=== PATIENT | female | born 1995 | race Caucasian/White ===

== ENCOUNTER 2018-01-03 06:53 | Emergency (ER) | payer MEDICAID, SELFPAY ==
[2018-01-03 06:54] VITALS: BP 136/64; PULSE 109; RESP 28; TEMP 37.4; O2SAT 95; BMI 31.9
--- NOTE | 2018-01-03 07:04 | CT_ITS ---
STUDY: CT ABDOMEN AND PELVIS WITH CONTRAST REASON FOR EXAM: Female, 22 years old. Right lower quadrant and right flank pain. RADIATION DOSAGE (If Supplied By Facility): CTDIvol = ( 15.12 ) mGy, DLP = ( 690.76 ) mGycm TECHNIQUE: Transaxial images were obtained from the dome of the diaphragm to the symphysis pubis with oral contrast. 100 ml of Isovue 300 contrast was administered. Sagittal and coronal images were reconstructed. Individualized dose optimization techniques were used for this CT. COMPARISON: None. FINDINGS: The visualized lung bases are unremarkable. The visualized portions of the heart are within normal limits. Normal liver. Normal gallbladder and extrahepatic biliary system. Normal spleen. Normal pancreas. Normal bilateral adrenal glands. Normal right kidney. Normal left kidney. Normal visualized stomach. Normal small intestine. Moderate amount of fecal material is seen in the colon. The appendix is visualized and appears normal. Normal abdominal aorta. Normal inferior vena cava. Normal retroperitoneum. Normal urinary bladder. There is a 2.9 cm x 2.2 cm cyst in the right ovary. There is a 2.3 cm x 1.6 cm cyst in the left ovary. Normal abdominal wall. Normal osseous structures. CT/Abdomen/Pelvis WITH Contrast IMPRESSION: Small bilateral ovarian cysts. Electronically Signed: Franky Michele MD at 9:28 EDT Tel [phone], Service support ,
--- NOTE | 2018-01-03 07:07 | ED.DCSUM_ITS ---
- ER Visit Summary Date of Service: 01/03/18 Chief Complaint: Abdominal pain History of Present Illness: The patient is a [address] Corona. She reports that she has lower abdominal pain that began yesterday and is gradually gotten worse. Is a sharp, aching pain that is 10 out of 10 severity. Is worsened by movement and relieved by nothing. She denies any associated nausea , vomiting, or diarrhea. Her last bowel movement was today. She has had no melena or hematochezia. She does complain of frequency, but no dysuria. She is on her menstrual period now. No vaginal discharge. Physical Examination: Vitals: Stable. Afebrile. General: Well-nourished and well-developed. Head: Normocephalic atraumatic. Neck: Supple, no lymphadenopathy. No JVD. Nontender. Cardiovascular: Regular rate and rhythm. No murmurs. Respiratory: No respiratory distress. Clear to auscultation bilaterally. Abdominal: Soft, mild diffuse there is palpation over her lower abdomen that is worst in the right lower quadrant where the tenderness is moderate in severity, nondistended, normal bowel sounds. No guarding, rebound, or peritoneal signs. Back: Nontender. Extremities: Nontender, no edema. Skin: Normal color, no rash. Neurologic: Alert and oriented ?3. Cranial nerves II through XII are intact. Normal strength and sensation. Psych: Normal affect. Test Results: CBC is remarkable for white count of 12.0 with 85 segmented neutrophils and 12 lymphocytes. H&H of 11.8 and 35.6. Chem-7 is more for chloride 108. UA shows 1025 white blood cells, 10-25 red blood cells, and 5-10 epithelial cells. There is 1+ bacteria. test is negative. CT abdomen pelvis with p.o. and IV contrast shows normal appendix. She does have a 2.9 x 2.2 cm right ovarian cyst and a 2.3 x 1.6 cm left ovarian cyst. Emergency Department Course and Treatment: Patient had an IV placed. She was treated with morphine and Zofran IV. She is resting comfortably. Treatment Plan: Patient will be discharged with naproxen, 12 Percocet, and Zofran. Instructed follow-up Dr. Corona in 1-2 days if not improving. Return to the emergency department for any worsening symptoms. Disposition: To home in improved and stable condition. Impression: 1. Abdominal pain, acute. 2. Bilateral ovarian cysts. This note was generated with [employer] dictation software. It may contain incorrect words, spelling, and punctuation that were not noted in review of the chart prior to signing ED Disposition - Plan for ED Patient: Chief Complaint: Other, Pain/Inj Instructions: ED Abdominal Pain Unkn Cause Prescriptions: Oxycodone HCl/Acetaminophen [Percocet 5/325] 1 tablet PO Q6H PRN PRN 3 Days #12 tablet PRN Reason: Pain Ondansetron [Zofran Odt] 4 mg PO Q8H PRN PRN #10 tablet PRN Reason: Nausea Naproxen [Naprosyn] 500 mg PO BID PRN #20 tablet Referrals: Franck Corona MD [Primary Care Provider] - 1-2 Days if not improving
[2018-01-03] MEDS: Ondansetron 4 MG/2 ML Vial IV (07:12)
[2018-01-03] MEDS: 0.9% Normal Saline 1,000 ML 1000 ML IV (07:12)
[2018-01-03] MEDS: Morphine 4 MG/ML Syringe IV ×2 (07:12→08:42)
[2018-01-03 07:22] LABS: Absolute Lymphocyte Count 1.38 X10^3/ul (0.83-4.51); Absolute Neutrophil Count 10.2 X10^3/uL (2.0-7.7); Basophil# 0.01 X10^3/uL; Basophil% 0.1 % (0-1); Eosinophil# 0.02 X10^3/uL; Eosinophils% 0.2 % (0-5); Hematocrit 35.6 % (37-47); Hemoglobin 11.8 g/dl (12.0-15.0); Lymphocyte # 1.38 X10^3/ul (4.0); Lymphocyte % 11.5 % (19-41); Mean Corp Hgb Conc 33.1 g/gl (32-36); Mean Corpuscular Hgb 32.8 pg (27.0-32.0); Mean Corpuscular Volume 98.9 fL (81-99); Mean Platelet Vol. 10.9 fl (6.2-12.0); Monocyte# 0.42 X10^3/uL; Monocyte% 3.5 % (0-10); Neutrophil # 10.18 X10^3/uL (2.7-7.7); Neutrophil % 84.5 % (47-70); Platelet Count 284 K/mm3 (150-450); RBC Distribution Width CV 11.8 % (11.6-14.6); RBC Distribution Width SD 41.3 fl (35.1-43.9)
[2018-01-03 07:28] LABS: Anion Gap 7 (5-15); BUN 11 mg/dL (7-18); BUN/Creat Ratio 12.8 RATIO (10-20); Calcium,Total 8.9 mg/dL (8.5-10.1); Chloride 108 mmol/L (98-107); Creatinine, Serum 0.86 mg/dL (0.55-1.02); EST Glomerular Filtration Rate 87 mL/min (>60); Est Glom Filt Rate - Afr Amer 105 mL/min (>60); Estimated Creatinine Clearance 102.63 ml/min; Glucose 88 mg/dL (74-106); Potassium 3.8 mmol/L (3.5-5.1); Sodium Level 140 mmol/L (136-145)
[2018-01-03 07:29] LABS: POSITIVE COUNT NO; POSITIVE DIFFERENTIAL NO; POSITIVE MORPHOLOGY NO
[2018-01-03 07:44] LABS: Pregnancy, Serum, hCG Quali. NEGATIVE Negative (0-9 Nonpreg)
[2018-01-03 08:09] LABS: Mucous, Urine 0 SEEN /hpf (<or=2+)
[2018-01-03 08:12] LABS: Color, Urine Yellow (Yellow); Glucose, Dipstick Normal (Normal); Ketone-Dipstick Negative (Negative); Leukocyte Esterase-Dipstick 100 /ul (Negative); Nitrite-Dipstick Negative (Negative); Occult Blood-Urine 250 /ul (Negative); Protein-Dipstick Negative (Negative); Urine Bilirubin Dipstick Negative (Negative); Urine Clarity Sl. Cloudy (Clear); Urine Urobilinogen Normal (Normal); Urine pH 6.5 (5.0 - 8.0)
[2018-01-03 08:23] LABS: Bacteria 1+ /hpf (None Seen); Red Blood Cells-Urine 10-25 SEEN /hpf (0-5); Squamous Epithelial Cells - UA 5-10 SEEN /hpf (5-10); White Blood Cells 10-25 SEEN /hpf (0-5)
[2018-01-03 08:43] VITALS: BP 119/74; PULSE 80; RESP 16; O2SAT 99
[2018-01-03 09:50] VITALS: BP 118/57; PULSE 71; RESP 16; O2SAT 98
== END 2018-01-03 09:51 | disposition home or self-care (01) ==
LOC: ED 07:19
PROVIDERS: Emergency Provider Emergency Medicine; Family Provider Family Medicine; PCP Family Medicine
DX: R10.9 Unspecified abdominal pain (principal); N83.202 Unspecified ovarian cyst, left side; N83.201 Unspecified ovarian cyst, right side; R35.0 Frequency of micturition; R51 Headache; Z79.899 Other long term (current) drug therapy
CPT/HCPCS: 74177; 80048; 81001; 84703; 85025; 96361; 96374; 96375; 96376; 99283; J7030; Q9967; A4216; J2405

== ENCOUNTER 2019-06-26 22:52 | Inpatient (IN) | payer MEDICAID, SELFPAY ==
[2019-06-26 23:23] VITALS: BMI 40.7
[2019-06-27] VITALS (21 sets, daily range): BP systolic 82–122; BP diastolic 47–76; PULSE 61–98; RESP 15–18; TEMP 35.8–36.8; O2SAT 95–100
[2019-06-27] MEDS: Lactated Ringers 1,000 ML 50 ML IV (00:08)
[2019-06-27] MEDS: Oxytocin 30 units/NS 500 ml 30 UNITS/500 ML IV.SOLN IV (00:20)
[2019-06-27 00:37] LABS: Absolute Lymphocyte Count 2.07 X10^3/uL (0.83-4.51); Absolute Neutrophil Count 7.4 X10^3/uL (2.0-7.7); Basophil# 0.03 X10^3/uL; Basophil% 0.3 % (0-1); Eosinophil# 0.08 X10^3/uL; Eosinophils% 0.8 % (0-5); Hematocrit 37.6 % (37-47); Hemoglobin 12.3 g/dL (12.0-15.0); Lymphocyte # 2.07 X10^3/ul (4.0); Lymphocyte % 20.1 % (19-41); Mean Corp Hgb Conc 32.7 g/dL (32-36); Mean Corpuscular Hgb 32.7 pg (27.0-32.0); Mean Platelet Vol. 11.1 fl (6.2-12.0); Monocyte# 0.65 X10^3/uL; Monocyte% 6.3 % (0-10); NRBC Flagged by Analyzer 0 % (0-5); Neutrophil # 7.39 X10^3/uL (2.7-7.7); Neutrophil % 71.8 % (47-70); Platelet Count 199 K/mm3 (150-450); Red Blood Count 3.76 M/mm3 (4.2-5.4); White Blood Count 10.3 K/mm3 (4.4-11.0)
[2019-06-27] MEDS: Lactated Ringers 500 ML 999 ML IV (07:30)
--- NOTE | 2019-06-27 07:46 | HP.PCM_ITS ---
History Date of Admission: 06/27/19 Final CASIMIRO: 07/02/19 Gestational age: 39 Weeks and 2 Days History of this : This is a 24 year-old, G [], P [], at 39 weeks gestational age. Zentz for labor induction due to polyhydramnios. Last official ultrasound infant was vertex and REAL was 28 cm. Allergies hydrocodone bitartrate [From Vicodin] Allergy (Verified 06/26/19 23:24) Hives Home Medications: Home Medications Multivitamin [Daily Multiple Vitamin] 1 each PO DAILY 08/22/17 Ferrous Sulfate [Iron] 325 mg PO DAILY 01/03/18 L.acidoph,Paracasei, B.lactis [Probiotic] 1 each PO DAILY 01/03/18 Smoking Status: Never smoker Alcohol: None Number of Fetus(es): 1 History Past Pregnancies: Past Pregnancies Delivery Date Name GA/Weeks Outcome Route Weight Infant Gender Labor Length Anesthesia Delivery Location Provider FOB Review of Systems Constitutional: Denies: Anorexia Cardiovascular: Denies: Chest Pain Gastrointestinal: Denies: Abdominal Pain Physical Exam General: Alert, Oriented x3 Abdomen: Soft, Non Tender, Gravid Neurological: Cranial nerves II-XII grossly intact [employer]ICE PROFESSIONALS: Normal external genitalia Estimated gestational size: Appropriate for gestational size Presentation: Cephalic Cervix Dilation (cm): 5 Station: -3 Effacement (%): 60 Assessment/Plan All Active Problems No significant past medical history (Acute) This is a 24 year-old, , at 39 weeks gestational age-induction for polyhydramnios. To labor and delivery Monitor heart rate and toco Spate normal spontaneous vaginal delivery Pitocin
--- NOTE | 2019-06-27 07:48 | PCM.PN.BLA ---
Progress Note Patient examined at bedside. She was 5 cm -3 station AROM was performed copious amounts of clear fluid. At this time bedside ultrasound performed revealed breech presentation. Patient was vertex in office on 06/26/2019. Per nursing staff was vertex on admission. Patient has had an unstable lie she was breech at one point but recent formal ultrasound indicated she was vertex. I discussed with the patient that at this time my recommendation is to proceed with a primary section for breech presentation. We discussed the risk and benefits primary section. Patient wishes to proceed at this time.
--- NOTE | 2019-06-27 08:40 | OP.PCM_ITS ---
Delivery Classification: IVA Final CASIMIRO: 07/02/19 Gestational age: 39 Weeks and 2 Days awning craftsperson: Scott Lui Type of Anesthesia:: Spinal Implants Used: none Date of Procedure: 06/27/19 Pre-Operative Diagnosis: Term gestation, Polyhydramnios, Breech Post-Operative Diagnosis: Live female infant Indications: Breech presentation appreciated during IOL after AROM- confirmed by bedside ultrasound. Indications for : Breech Description of Procedure: After informed consent was obtained the patient was taken the operating room she was given spinal anesthesia. She was then placed in the supine position. She was prepped and draped in the normal sterile fashion. Anesthesia was found to be adequate. At this time a Pfannenstiel skin incision was made with a knife was carried down to the underlying layer of the fascia. The fascial incision was then extended laterally using curved Marti scissor. Tensions was then turned to the superior aspect of the fascial edge was grasped with 2 straight [place] clamps tented up and the rectus muscle dissected off sharply using curved Marti scissor. Attention was then turned to the inferior aspect where again [place] clamps were placed in the rectus muscles were tented up and the fascia was diss ected off sharply using the curved Marti scissor. Rectus muscles were then in the midline bluntly and peritoneum was entered bluntly. Gentle opposing traction was placed. At this time the vesicouterine peritoneum was identified. Scalpel was used to make a uterine incision in a low transverse fashion. The uterus was then entered bluntly gentle opposing traction was placed to extend this incision. Infant's buttock was brought to the uterine incision was delivered atraumatically followed by rest of body and head. Delayed cord clamping. Cord was clamped and cut was handed to the waiting nursery team. The Placenta was removed from the uterus. The uterus was then removed from the abdominal cavity. The uterus was cleared of all clots and debris using a lap. At this time the uterine incision was reapproximated using #1 Vicryl in a running locked fashion. second imbricating layer with 1-0 vicryl placed. Hemostasis was appreciated. Posterior cul-de-sac was then cleared of all clots and debris. Uterus was placed back in the abdominal cavity. Gutters were cleared of all clots and debris. Uterine incision was reevaluated and noted to be of excellent hemostasis. At this time the peritoneum was grasped with Kellys reapproximated using #2 Vicryl suture in a running fashion. Muscles then reapproximated using #2 Vicryl in a interrupted mattress suture fashion. Fascia was then reapproximated using #1 Vicryl in a running fashion. Subcu layer was reapproximated with #2 0 plain gut suture in an interrupted fashion. Subcu layer was closed using 4-0 Monocryl in a subcu fashion. Dry sterile dressing was applied. Instrument lap needle count correct ?2. Anticipated normal postoperative course. Amniotic Membrane Rupture Type: Artificial Amniotic Fluid Description: Clear Placenta Disposition: [facility] Drain: Prince to straight drain Fluids Replaced: 1000 Cord Entanglement: None Nuchal Cord Compression: Without compression Cord Vessel Description: 3 Vessels Esitmated Blood Loss (ml): 600 Infant Gender: Female (1 minute): 9 (5 minute): 10 Delayed cord clamping: Yes Antibiotic Given: Ancef 3 grams IV x1, Zithromax 500 mg/5 mL X1 Pt instructed on risks of surgery: Bleeding, Anesthesia Risks, Infection, Injury to surrounding structure(s) including bowel and bladder Complications: None - Admit VTE Documentation VTE Present on Admission: Yes VTE Mechan Device Prophylaxis: SCD's VTE Pharm Prophylaxis ordered?: Yes
[2019-06-27] MEDS: Oxytocin 30 units/NS 500 ml 30 UNITS/500 ML IV.SOLN 167 UNITS IV (09:10)
[2019-06-27] MEDS: Lactated Ringers 1,000 ML 100 ML IV (12:12)
[2019-06-27] MEDS: Ferrous Sulfate 325 MG Tablet PO (15:05)
[2019-06-27] MEDS: Ketorolac 30 MG/ML Syringe IV ×2 (15:06→20:14)
[2019-06-28] VITALS (7 sets, daily range): BP systolic 104–123; BP diastolic 54–72; PULSE 78–96; RESP 16–20; TEMP 36.1–36.7; O2SAT 95–100
[2019-06-28] MEDS: Ibuprofen 600 MG Tablet PO ×3 (02:04→16:47)
[2019-06-28 06:50] LABS: White Blood Count 11.2 K/mm3 (4.4-11.0)
[2019-06-28 06:51] LABS: Hematocrit 34.2 % (37-47); Hemoglobin 11.2 g/dL (12.0-15.0); Mean Corp Hgb Conc 32.7 g/dL (32-36); Mean Corpuscular Hgb 32.8 pg (27.0-32.0); Mean Corpuscular Volume 100.3 fL (81-99); Platelet Count 203 K/mm3 (150-450); RBC Distribution Width CV 13.1 % (11.6-14.6); RBC Distribution Width SD 47.9 fl (35.1-43.9); Red Blood Count 3.41 M/mm3 (4.2-5.4)
[2019-06-28] MEDS: oxyCODONE 5 MG Tablet PO ×3 (08:20→20:55)
--- NOTE | 2019-06-28 08:54 | PCM.PN.OB ---
Subjective: Patient seen at bedside, doing well. Patient reports good pain control. Passing flatus. Razo catheter still in place. Breast-feeding is going well. Mild lochia. Denies any chest pain, shortness of breath, or dizziness. - Physical Exam General: Alert, Oriented x3 Abdomen: Soft, Non-Distended, Passing Flatus, - - Fundus firm. Incision dressing dry and intact. Extremities: No Calf Tenderness Vital Signs Temp Pulse Resp BP Pulse Ox 98.0 F 80 18 107/54 L 98 06/28/19 04:00 06/28/19 08:00 06/28/19 08:00 06/28/19 04:00 06/28/19 08:00 Oxygen Delivery Method Room Air Weight: 121.472 kg Body Mass Index (BMI) 40.7 Intake and Output for Last 24 Hours 06/26/19 06/27/19 06/28/19 23:59 23:59 23:59 Intake Total 4009.81 / 4009.81 Output Total 2750 / 2750 Balance 1259.81 / 1259.81 Laboratory Tests Past 24 Hrs 06/28/19 04:15 WBC 11.2 H RBC 3.41 L Hgb 11.2 L Hct 34.2 L MCV 100.3 H MCH 32.8 H MCHC 32.7 RDW Std Deviation 47.9 H RDW Coeff of Jose 13.1 Plt Count 203 MPV 12.0 Medical Necessity - Tobacco Use Smoking Status: Never smoker Assessment/Plan All Active Problems No significant past medical history (Acute) POD#1, doing well routine care pain mgmt ambulation janet razo
[2019-06-28] MEDS: Ferrous Sulfate 325 MG Tablet PO (10:22)
[2019-06-28] MEDS: Acetaminophen 500 MG Tablet 1000 MG PO (16:56)
[2019-06-29 03:00] VITALS: BP 120/67; PULSE 90; RESP 16; TEMP 36.6
[2019-06-29] MEDS: Acetaminophen 500 MG Tablet 1000 MG PO (05:50)
[2019-06-29 08:50] VITALS: BP 120/69; PULSE 88; RESP 14; TEMP 36.6
--- NOTE | 2019-06-29 09:00 | PCM.PN.OB ---
Subjective: Patient seen at bedside, doing well. Patient reports good pain control. Passing flatus. Voiding without difficulty. Breast-feeding is going well. Mild lochia. Denies any chest pain, shortness of breath, or dizziness. Planning D/C home today. - Physical Exam General: Alert, Oriented x3, Cooperative HEENT: Atraumatic, Normocephalic Neck: Trachea Midline Lungs: Clear to auscultation, Normal air movement, No rhonchi, No wheeze Cardiovascular: Regular rate, Regular Rhythm, No murmurs Abdomen: Bowel Sounds Present, - - Fundus firm 2 below U. Dressing dry and intact Extremities: No edema Psych/Mental Status: Normal Affect, Appropriate Vital Signs Temp Pulse Resp BP Pulse Ox 98 F 90 16 120/67 100 06/29/19 03:00 06/29/19 03:00 06/29/19 03:00 06/29/19 03:00 06/28/19 14:15 Oxygen Delivery Method Room Air Weight: 267 lb 12.8 oz Body Mass Index (BMI) 40.7 Intake and Output for Last 24 Hours 06/27/19 06/28/19 06/29/19 23:59 23:59 23:59 Intake Total 4009.81 / 4009.81 650 / 650 850 / 850 Output Total 2750 / 2750 2500 / 2500 750 / 750 Balance 1259.81 / 1259.81 -1850 / -1850 100 / 100 Medical Necessity - Tobacco Use Smoking Status: Never smoker Assessment/Plan All Active Problems No significant past medical history (Acute) A:POD #2 LTCS P: 1) Routine and post op care. D/C home today 2) Follow up in 1-2 weeks for incision check and 6 weeks for visit.
--- NOTE | 2019-06-29 09:15 | DCINST_ITS ---
Discharge Diet: No Restrictions Discharge Activity: May Not Drive - for 2 weeks or while taking narcotic pain meds., May Shower, May Take a Tub Bath - in 7 days. May resume sexual activity in: 4-6 weeks Weight Bearing Status: Full weight bearing Lifting Restrictions: 20 pounds Additional Activity Instructions:: Nothing in the vagina for 4-6 weeks. You may return to work/school in 6 weeks. Call your doctor if your incision/area has: Continuous Slow Oozing, Sudden Increased Bleeding, Increased Pain/ Swelling, Increased Redness, Foul Smelling Discharge Call your doctor if you observe: Fever of 101 or Higher, Inability to urinate, Inability to have a bowel movement, Using more than one pad per hour, Shortness of breath, Increased palpitations (irregular heartbeat), Calf discomfort, Uncontrolled pain Suture Line Care: Avoid Pulling/Pushing, Avoid Pinching/Bending Additional Instructions: If you experience any of the following, contact your healthcare provider. * Bleeding that soaks a pad every hour for 2 hours * Fever 100.4 or higher * Unrelieved incision or abdominal pain * Swelling, redness, discharge or bleeding from your incision or episiotomy site * Your incision begins to separate * Problems urinating (including inability to urinate or burning while urinating). * Visual changes * Severe headache * Flu-like symptoms * Pain or redness in one of both of your breasts * Pain, warmth, tenderness or swelling in your legs, especially the calf area * Frequent nausea and vomiting * Symptoms of depression or anxiety If you experience any of the following, call 911 or go to the nearest Emergency Room. * Chest pain * Problems breathing * Seizure activity * Partial or complete paralysis of a body part, slurred speech, weakness or drooping of the face, or a sudden inability to walk or hold your balance Allergies/Adverse Reactions: Allergies hydrocodone bitartrate [From Vicodin] Allergy (Verified 06/26/19 23:24) Hives Medications to take at Discharge Multivitamin [Daily Multiple Vitamin] 1 each PO DAILY 08/22/17 Ferrous Sulfate [Iron] 325 mg PO DAILY 01/03/18 L.acidoph,Paracasei, B.lactis [Probiotic] 1 each PO DAILY 01/03/18 Ibuprofen [Motrin] 600 mg PO Q6H PRN PRN #30 tab 06/29/19 The following prescriptions were given: Ibuprofen [Motrin] 600 mg PO Q6H PRN PRN #30 tab PRN Reason: Mild Pain (-11/30) Transmission Status: Pending to [facility] Follow-Up: Call to make an appointment with your doctor for an incision check in 1-2 weeks. You will also need a 6 week post- follow up appointment. Test results from this visit will be discussed in further detail at your follow- up appointment, if applicable. Please Follow Up With: Katarina Fernandez MD Primary Care Physician: Franck Corona MD [Primary Care Provider] -
[2019-06-29] MEDS: Ferrous Sulfate 325 MG Tablet PO (13:03)
[2019-06-29 13:06] VITALS: BP 121/71; PULSE 100; RESP 18; TEMP 36.9
[2019-06-29] MEDS: oxyCODONE 5 MG Tablet PO (13:12)
== END 2019-06-29 14:10 | disposition home or self-care (01) | DRG 540 ==
PROVIDERS: Admitting Provider Obstetrics & Gynecology; Family Provider Family Medicine; PCP Family Medicine; Referring Provider Obstetrics & Gynecology; Visit Provider Obstetrics & Gynecology
DX: O40.3XX0 Polyhydramnios, third trimester, not applicable or unspecified (principal); O32.1XX0 Maternal care for breech presentation, not applicable or unspecified; O99.02 Anemia complicating childbirth; D64.9 Anemia, unspecified; Z79.899 Other long term (current) drug therapy; Z3A.39 39 weeks gestation of pregnancy; Z37.0 Single live birth
CPT/HCPCS: 59025; 59050; 85025; 85027; 86850; 86900; 86901; 99218; J7120; G0378

== ENCOUNTER 2019-07-03 15:55 | Observation (INO) | payer MEDICAID, SELFPAY ==
[2019-07-03 15:56] VITALS: BP 147/88; PULSE 90; RESP 14; TEMP 36.9; O2SAT 100; BMI 37.7
--- NOTE | 2019-07-03 16:25 | CT_ITS ---
STUDY: CT ABDOMEN AND PELVIS WITH CONTRAST REASON FOR EXAM: Female, 24 years old. Abdominal pain, 6 days post , drainage from incision site RADIATION DOSAGE (If Supplied By Facility): CTDIvol = ( 18.31 ) mGy, DLP = ( 1323.18 ) mGycm TECHNIQUE: Transaxial images were obtained from the dome of the diaphragm to the symphysis pubis without oral contrast. IV Isovue 300 100mL was administered. Sagittal and coronal images were reconstructed. Individualized dose optimization techniques were used for this CT. COMPARISON: Prior study of 01/03/2018 FINDINGS: There are minimal bibasilar pleural effusions. The lungs are clear. The visualized portions of the heart are within normal limits. There is mild intrahepatic periportal edema. Normal gallbladder and extrahepatic biliary system. Normal spleen. Normal pancreas. Normal bilateral adrenal glands. Normal right kidney. Normal left kidney. Normal visualized stomach. Normal small intestine. Normal colon. The appendix is visualized and appears normal. Normal abdominal aorta. Normal inferior vena cava. Normal retroperitoneum. Normal urinary bladder. The uterus is enlarged consistent with history of recent . There is a subcutaneous fluid collection containing air densities of the anterior lower pelvis slightly to the right of midline measuring 6.1 x 1.7 x 2.6 cm, compatible with abscess. Several tiny air densities are also noted in the lower left rectus sheath. Normal osseous structures. CT/Abdomen/Pelvis W IV Cont ONLY IMPRESSION: Subcutaneous fluid collection containing air densities of the anterior lower pelvis slightly to the right of midline measuring 6.1 x 1.7 x 2.6 cm, compatible with abscess. Enlarged uterus consistent with history of recent delivery. There is mild intrahepatic periportal edema. There are small bibasilar pleural effusions. Electronically Signed: Ran Henao MD at 18:03 EDT , Service support ,
--- NOTE | 2019-07-03 16:25 | ED.DCSUM_ITS ---
- ER Visit Summary Date of Service: 07/03/19 Chief Complaint: Post pain and drainage History of Present Illness: The patient is a 24 F status post on Saturday. Was discharged in the hospital on Saturday. Both she and her new child have been doing well. She saw her INVESTMENT COUNSELOR's office today. Dr. Saini looked at the wound and took cultures. Also started her on antibiotics. They were concerned she might have a seroma versus a postop infection and sent her to the ER for a CAT scan. Patient denies any fever or chills. She denies any vangie pus. States that the drainage is more blood-tinged fluid. Physical Examination: Well-appearing young female no acute distress. Vital signs are stable and afebrile. HEENT exam unremarkable. Neck nontender no lymphadenopathy. Lungs clear to auscultation bilaterally. Heart regular rhythm no murmur. Abdomen is soft. Nondistended. Normal bowel sounds. She has a C- section incision. Currently is dry and clean. There is no cellulitis. He does have tenderness around the wound. I do not see any vangie pus. There is no anaerobic odor. She is moving all 4 extremities. There is trace edema in her lower extremities which she states is been there before the and during the . Neurologically she is awake and alert with no focal motor deficits. Test Results: CBC shows white count of 9. Hemoglobin 11. No bands. Electrolytes unremarkable normal creatinine gap. CT abdomen with IV contrast shows a subcutaneous fluid collection a 6 x 1.7 x 2.6 cm. There is air. The radiologist is concerned this is a subcutaneous abscess more so than a seroma. He and I did discuss CAT scan reading via phone. Emergency Department Course and Treatment: She was treated with morphine and Zofran for pain. And needed a second dose of morphine. Treatment Plan: I spoke with Dr. Liu on-call for INVESTMENT COUNSELOR. She was started on IV Zosyn. She will be admitted. The plan will be to do surgical incision and drainage of the abscess. Disposition: Admission Impression: Status post approximately 6 days ago Wound fluid collection will out abscess and wound infection versus seroma This note was generated with [employer] software. It may contain incorrect words, spelling, and punctuation that were not noted in review of the chart prior to signing ED Disposition - Plan for ED Patient: Referrals: Franck Corona MD [Primary Care Provider] -
[2019-07-03] MEDS: Morphine 4 MG/ML Syringe 6 MG IV ×2 (16:54→19:38)
[2019-07-03] MEDS: Ondansetron 4 MG/2 ML Vial IV (16:55)
[2019-07-03] MEDS: 0.9% Normal Saline 1,000 ML 125 ML IV (16:58)
[2019-07-03 17:09] LABS: Absolute Lymphocyte Count 1.38 X10^3/uL (0.83-4.51); Absolute Neutrophil Count 7.5 X10^3/uL (2.0-7.7); Basophil# 0.02 X10^3/uL; Basophil% 0.2 % (0-1); Eosinophil# 0.11 X10^3/uL; Eosinophils% 1.1 % (0-5); Hematocrit 34.6 % (37-47); Hemoglobin 11.2 g/dL (12.0-15.0); Lymphocyte # 1.38 X10^3/ul (4.0); Lymphocyte % 14.2 % (19-41); Mean Corp Hgb Conc 32.4 g/dL (32-36); Mean Corpuscular Hgb 32.7 pg (27.0-32.0); Mean Corpuscular Volume 101.2 fL (81-99); Monocyte# 0.67 X10^3/uL; Monocyte% 6.9 % (0-10); NRBC Flagged by Analyzer 0 % (0-5); Neutrophil # 7.47 X10^3/uL (2.7-7.7); Neutrophil % 76.8 % (47-70); Platelet Count 305 K/mm3 (150-450); RBC Distribution Width CV 12.7 % (11.6-14.6); Red Blood Count 3.42 M/mm3 (4.2-5.4); White Blood Count 9.7 K/mm3 (4.4-11.0)
[2019-07-03 17:22] LABS: Anion Gap 8 (5-15); BUN 10 mg/dL (7-18); BUN/Creat Ratio 15.1 RATIO (10-20); Calcium,Total 8.7 mg/dL (8.5-10.1); Chloride 109 mmol/L (98-107); Creatinine, Serum 0.66 mg/dL (0.55-1.02); EST Glomerular Filtration Rate 116 mL/min (>60); Est Glom Filt Rate - Afr Amer 140 mL/min (>60); Estimated Creatinine Clearance 131.44 ml/min; Glucose 78 mg/dL (74-106); Potassium 3.7 mmol/L (3.5-5.1); Sodium Level 142 mmol/L (136-145)
[2019-07-03 19:30] VITALS: BP 138/84; PULSE 89; RESP 15; O2SAT 99
[2019-07-03 21:41] VITALS: BP 149/88; PULSE 90; RESP 18; TEMP 37; O2SAT 99; BMI 38.0
[2019-07-03 22:30] VITALS: BMI 37.7
[2019-07-03] MEDS: oxyCODONE 5 MG Tablet PO (22:42)
[2019-07-04] MEDS: 0.9% Normal Saline 1,000 ML 125 ML IV (00:19)
[2019-07-04] MEDS: oxyCODONE 5 MG Tablet PO ×2 (03:50→07:46)
[2019-07-04 04:00] VITALS: BP 126/78; PULSE 95; RESP 18; TEMP 37.2; O2SAT 99
--- NOTE | 2019-07-04 05:40 | PCM.HP.STD ---
History of Present Illness Date of Admission: 07/03/19 Chief Complaint: Pelvic abscess The patient is a 24 year old F 7 days s/p presented to office with complaint of drainage from incision. The drainage is bloody to clear. She denies abdominal pain. Also denies fever/chills. Patient has been feeling well since the . Past Medical History Allergies hydrocodone bitartrate [From Vicodin] Allergy (Verified 07/03/19 15:59) Hives Home Medications: Ambulatory Orders Medication Instructions Recorded Ferrous Sulfate [Iron] 325 mg PO DAILY 01/03/18 Ibuprofen [Motrin] 600 mg PO Q6H PRN PRN #30 tab 06/29/19 Cephalexin [Keflex] 500 mg PO 4X/DAY #40 cap 07/04/19 Oxycodone [Oxyir] 5 mg PO Q6H PRN PRN 5 Days #20 tab 07/04/19 Surgical History: Surgical History (Last Updated 07/04/19 @ 05:44 by Tracey Liu) Previous section Z98.891 Surgical History: no surgical history, - Psychiatric History: No pertinent psych hx OCCUPATIONAL HEALTH COORDINATOR History: No pertinent OCCUPATIONAL HEALTH COORDINATOR history Lives: With Family Smoking Status: Never smoker Drugs: None Review of Systems Constitutional: Denies: Chills, Fever, Weight Change Cardiovascular: Denies: Chest Pain, Palpitations Respiratory: Denies: Cough, Shortness of breath at rest, Sputum production Neurological: Denies: Numbness, Tingling, Focal weakness VTE Information - Inpt Only VTE Present on Admission: No - Physical Exam General: Alert, Oriented x3 HEENT: Atraumatic Abdomen: Soft, Non Tender, Non-Distended, - - Incision - open right side, draining serosanguinous fluid Extremities: No Calf Tenderness Neurological: Cranial nerves II-XII grossly intact Psych/Mental Status: Normal Affect Vital Signs Temp Pulse Resp BP Pulse Ox 99 F 95 18 126/78 H 99 07/04/19 04:00 07/04/19 04:00 07/04/19 04:00 07/04/19 04:00 07/04/19 04:00 Oxygen Delivery Method Room Air Weight: 250 lb Body Mass Index (BMI) 38.0 Intake and Output for Last 24 Hours 07/02/19 07/03/19 07/04/19 23:59 23:59 23:59 Intake Total 614.58 / 614.58 Balance 614.58 / 614.58 Laboratory Tests Past 24 Hrs 07/03/19 07/03/19 16:50 16:50 WBC 9.7 RBC 3.42 L Hgb 11.2 L Hct 34.6 L MCV 101.2 H MCH 32.7 H MCHC 32.4 RDW Std Deviation 48.0 H RDW Coeff of Jose 12.7 Plt Count 305 MPV 10.0 Immature Gran % (Auto) 0.800 Neut % (Auto) 76.8 H Lymph % (Auto) 14.2 L [place] % (Auto) 6.9 Eos % (Auto) 1.1 Baso % (Auto) 0.2 Absolute Neuts (auto) 7.5 Absolute Lymphs (auto) 1.38 Nucleated RBC % 0 Sodium 142 Potassium 3.7 Chloride 109 H Carbon Dioxide 25.0 Anion Gap 8 BUN 10 Creatinine 0.66 Estim Creat Clear Calc 131.44 Est GFR (MDRD) Af Amer 140 Est GFR (MDRD) Non-Af 116 BUN/Creatinine Ratio 15.1 Glucose 78 Calcium 8.7 Assessment/Plan All Active Problems No significant past medical history (Acute) 24yo female admitted 1 week s/p with pelvic abscess Admit to med surg IV zosyn Pelvic abscess - plan to reviewed CT with Incision opened & abscess fluid drained at bedside by . Will discharge home on keflex & patient to f/u Saturday.
[2019-07-04] MEDS: Ondansetron 4 MG/2 ML Vial IV (06:58)
[2019-07-04] MEDS: morphine 10 MG/ML Syringe 6 MG IV (06:58)
--- NOTE | 2019-07-04 07:34 | DCINST_ITS ---
Discharge Diet: No Restrictions Discharge Activity: May not drive while taking narcotic pain medications., May Shower Suture Line Care: Avoid Pulling/Pushing, Avoid Pinching/Bending Additional Instructions: If you experience any of the following, contact your healthcare provider. * Bleeding that soaks a pad every hour for 2 hours * Fever 100.4 or higher * Unrelieved incision or abdominal pain * Swelling, redness, discharge or bleeding from your incision or episi otomy site * Your incision begins to separate * Problems urinating (including inability to urinate or burning while urinating). * Visual changes * Severe headache * Flu-like symptoms * Pain or redness in one of both of your breasts * Pain, warmth, tenderness or swelling in your legs, especially the calf area * Frequent nausea and vomiting * Symptoms of depression or anxiety If you experience any of the following, call 911 or go to the nearest Emergency Room. * Chest pain * Problems breathing * Seizure activity * Partial or complete paralysis of a body part, slurred speech, weakness or drooping of the face, or a sudden inability to walk or hold your balance Allergies/Adverse Reactions: Allergies hydrocodone bitartrate [From Vicodin] Allergy (Verified 07/03/19 15:59) Hives Medications to take at Discharge Ferrous Sulfate [Iron] 325 mg PO DAILY 01/03/18 Ibuprofen [Motrin] 600 mg PO Q6H PRN PRN #30 tab 06/29/19 Cephalexin [Keflex] 500 mg PO 4X/DAY #40 cap 07/04/19 Oxycodone [Oxyir] 5 mg PO Q6H PRN PRN 5 Days #20 tab 07/04/19 The following prescriptions were given: Cephalexin [Keflex] 500 mg PO 4X/DAY #40 cap Prescription Printed Oxycodone [Oxyir] 5 mg PO Q6H PRN PRN 5 Days #20 tab PRN Reason: Pain Score 6-10/10 Prescription Printed Follow-Up: Call to make an appointment with your doctor for an incision check in 1-2 weeks. You will also need a 6 week post- follow up appointment. Test results from this visit will be discussed in further detail at your follow- up appointment, if applicable. Primary Care Physician: Franck Corona MD [Primary Care Provider] -
[2019-07-04] MEDS: Acetaminophen 500 MG Tablet 1000 MG PO (07:47)
[2019-07-04 08:06] VITALS: BP 137/95; PULSE 89; RESP 16; TEMP 36.6; O2SAT 100
--- NOTE | 2019-07-04 11:49 | NURSING ---
Patient's mother came to desk and requested to know if pt is really to remove her own packing tomorrow(that was placed by Dr. Richter today) or if she is to wait until Saturday- as pt was confused. This RN paged Dr. Richter and notified mother that we would call when information is obtained. Number given and this RN notified her we would not use pt's name but would leave message with information requested. Same completed. Dr. Richter states ok for pt to removed packing on own tomorrow if she is able but otherwise it would be removed in office visit with Dr. Liu on Saturday.
--- NOTE | 2019-07-04 14:06 | PCM.CONS.GEN ---
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 She was referred to [facility] emergency department. She underwent CT scan of the abdomen pelvis which demonstrated a subcutaneous fluid collection 6 x 2 x 2.6 cm with some air present felt to be consistent with a subcutaneous abscess. The patient's white blood cell count was 9. She was admitted to the hospital and given IV Zosyn. Cultures were obtained apparently in the office of the drainage. I was contacted by Dr. Liu for evaluation of the CT scan and to assist in drainage of the abscess. when you have the CT scan images demonstrates the collection noted there is air bubbles of air and a smaller collection of the left of midline. There is an air bubble behind the fascia on the left side in front of the rectus muscle but this does not appear to have an abscess present with this. The cavity with there seems to be approximately 4 cm deep to the skin Past Medical History Allergies hydrocodone bitartrate [From Vicodin] Allergy (Verified 07/03/19 15:59) Hives Home Medications: Ambulatory Orders Medication Instructions Recorded Ferrous Sulfate [Iron] 325 mg PO DAILY 01/03/18 Ibuprofen [Motrin] 600 mg PO Q6H PRN PRN #30 tab 06/29/19 Cephalexin [Keflex] 500 mg PO 4X/DAY #40 cap 07/04/19 Oxycodone [Oxyir] 5 mg PO Q6H PRN PRN 5 Days #20 tab 07/04/19 Surgical History: Surgical History (Last Updated 07/04/19 @ 05:44 by Tracey Liu) Previous section Z98.891 Surgical History: no surgical history, - Psychiatric History: No pertinent psych hx [employer] History: No pertinent [employer] WORK[employer] history Lives: With Family Smoking Status: Never smoker Drugs: None Review of Systems Constitutional: Denies: Chills, Fever, Weight Change HEENT: Denies: Head Aches, Sinus Congestion, Sinus Drainage Cardiovascular: Denies: Chest Pain, Palpitations Respiratory: Denies: Cough, Shortness of breath at rest, Sputum production Gastrointestinal: Reports: Abdominal Pain. Denies: Nausea, Vomiting Genitourinary: Denies: Dysuria Musculoskeletal: Denies: Joint Pain, Joint Tenderness Skin: Denies: Rash, Wounds Neurological: Denies: Numbness, Tingling, Focal weakness Psychiatric: Denies: Anxiety, Depression, Homicidal Ideations, Suicidal Ideations Hematologic/ Lymphatic: Denies: Easy Bruising, Easy Bleeding - Physical Exam General: Alert, Oriented x3, Cooperative Abdomen: Bowel Sounds Present, Soft, - - erythematous along the incision with induration and pain to palpation. Lifting the patient's pannus had liquid purulent material stream from the sinus just to the right of midline. Vital Signs Temp Pulse Resp BP Pulse Ox 97.9 F 89 16 137/95 H 100 07/04/19 08:06 07/04/19 08:06 07/04/19 08:06 07/04/19 08:06 07/04/19 08:06 Oxygen Delivery Method Room Air Weight: 113.398 kg Body Mass Index (BMI) 38.0 Intake and Output for Last 24 Hours 07/02/19 07/03/19 07/04/19 23:59 23:59 23:59 Intake Total 614.58 / 614.58 1050 / 1050 Output Total 1050 / 1050 Balance 614.58 / 614.58 0 / 0 Laboratory Tests Past 24 Hrs 07/03/19 07/03/19 16:50 16:50 WBC 9.7 RBC 3.42 L Hgb 11.2 L Hct 34.6 L MCV 101.2 H MCH 32.7 H MCHC 32.4 RDW Std Deviation 48.0 H RDW Coeff of Jose 12.7 Plt Count 305 MPV 10.0 Immature Gran % (Auto) 0.800 Neut % (Auto) 76.8 H Lymph % (Auto) 14.2 L [place] % (Auto) 6.9 Eos % (Auto) 1.1 Baso % (Auto) 0.2 Absolute Neuts (auto) 7.5 Absolute Lymphs (auto) 1.38 Nucleated RBC % 0 Sodium 142 Potassium 3.7 Chloride 109 H Carbon Dioxide 25.0 Anion Gap 8 BUN 10 Creatinine 0.66 Estim Creat Clear Calc 131.44 Est GFR (MDRD) Af Amer 140 Est GFR (MDRD) Non-Af 116 BUN/Creatinine Ratio 15.1 Glucose 78 Calcium 8.7 Assessment/Plan All Active Problems No significant past medical history (Acute) impression-subcutaneous abscess Procedure- Incision and drainage of abscess Following consenting the patient, the abdominal wall was cleaned with Betadine. 1% lidocaine with epinephrine was injected along the previous incision. An 11 blade was used to extend the incision on each side of the draining sinus through the previous Pfannenstiel incision for approximately 3 cm length. significant purulent material drained. Cultures were obtained. The wound was probed and tracked to the right as expected based on the CT scan. The cavity was irrigated with a dilute hydrogen peroxide saline solution and packed with iodine impregnated Kerlix. The patient tolerated the procedure well. Plan-the patient can be discharged on Ke.should continue to remove the packing herself tomorrow or return to [employer] to have it removed on Saturday. If there is extending inflammation or any problems the patient can follow-up in my office.
== END 2019-07-04 11:39 | disposition home or self-care (01) ==
LOC: ED 16:28 → MS3 22:27
PROVIDERS: Admitting Provider Obstetrics & Gynecology; Emergency Provider Emergency Medicine; Family Provider Family Medicine; PCP Family Medicine; Referring Provider Obstetrics & Gynecology; Visit Provider Obstetrics & Gynecology
DX: O86.00 Infection of obstetric surgical wound, unspecified (principal); L02.211 Cutaneous abscess of abdominal wall; O99.215 Obesity complicating the puerperium; E66.01 Morbid (severe) obesity due to excess calories; Z71.3 Dietary counseling and surveillance
CPT/HCPCS: 10060; 74177; 80048; 85025; 87070; 87075; 87077; 87186; 87205; 96361; 96365; 96366; 96375; 96376; 99218; 99284; J7030; J7040; Q9967; A4216; G0378; J2405

== ENCOUNTER → 2020-08-19 | Outpatient (CLI) | payer MEDICAID, SELFPAY ==
[2020-08-19 14:38] VITALS: BMI 36.3
== END | disposition home or self-care (01) ==
LOC: LABSPEC 17:30
PROVIDERS: PCP Family Medicine; Visit Provider Physician Assistant Surgical
DX: Z20.828 Contact with and (suspected) exposure to other viral communicable diseases (principal)
CPT/HCPCS: 87635; U0003

== ENCOUNTER 2022-10-06 15:37 | Emergency (ER) | payer MEDICAID, SELFPAY ==
[2022-10-06 15:38] VITALS: BP 155/78; PULSE 78; RESP 16; TEMP 36.6; O2SAT 99; BMI 31.9
--- NOTE | 2022-10-06 15:47 | ED.VIS.LOWEX ---
HPI History of Present Illness HPI Narrative: Patient presents with left knee pain that began 2 to 3 days ago. Patient states she hit it on a metal bed frame. Patient states the pain is sharp. Patient states the pain is worse with movement. Patient states the pain is better with heat, keeping it elevated, and rest. Patient admits to some occasional paresthesias in her left knee area. Patient denies any weakness. Patient denies any head injury or loss of consciousness. Patient denies any other injuries. Chief Complaint: Lower Extremity Injury Informant: patient Occured/Mechanism Mechanism/Context: Yes direct blow Onset/Context/Timing Onset: Days (2) Context: Sudden Onset Timing: Continuous Quality of Pain: Sharp Location: Left knee Worsened by: Movement Relieved by: Heat, elevation, rest Associated Symptoms Associated Symptoms: Positive for Parasthesia; Negative for Weakness or Loss of Funtion PFSH [facility] Medical History (Updated 10/06/22 @ 16:[address] Humza Barth DO) Knee injury Medical History no medical history no medical history Home Medications ferrous sulfate 325 mg (65 mg iron) tablet 325 mg PO DAILY 01/03/18 [History Last Taken 07/03/19 11:00] ibuprofen 600 mg tablet 600 mg PO Q6H PRN PRN Mild Pain (-11/30) #30 tabs 06/29/19 [Rx Last Taken 07/03/19 13:30] cephalexin 500 mg capsule 500 mg PO 4X/DAY #40 caps 07/04/19 [Rx Last Taken Unknown] Allergy/AdvReac Type Severity Reaction Status Date / Time hydrocodone bitartrate Allergy Hives Verified 10/06/22 15:37 [From Vicodin] Surgical History Previous section Social History Smoking Status: Never smoker ROS ROS ED Constitutional Constitutional ED: Denies chills or fever(s) Eyes Eyes: Reports blurry vision; Denies diplopia ENT ENT ED: Reports sore throat; Denies rhinorrhea Cardiovascular Cardiovascular: Denies chest pain or palpitations Respiratory/Chest Respiratory/Chest: Reports cough; Denies dyspnea Gastrointestinal Gastrointestinal: Denies nausea or vomiting Genitourinary Genitourinary ED: Denies dysuria or hematuria Musculoskeletal Musculoskeletal: Denies back pain or neck pain Integumentary Denies abscess or rash Neurologic Neurologic: Reports headache(s); Denies weakness Allergic/Immunologic Allergic/Immunologic ED: Denies mouth swelling or urticaria EXAM Physical Exam Const Vital Signs: 10/06/22 15:38 Temperature 97.8 F Temperature Source Temporal Pulse Rate 78 Respiratory Rate 16 Blood Pressure 155/78 H Blood Pressure Mean 103 Pulse Ox 99 Oxygen Delivery Method Room Air Positive well nourished and well developed General Appearance ED: well developed and NAD Neck full ROM Extremity Extremity Narrative: There is tenderness over the anterior aspect of the left knee. There is no edema or ecchymosis. There is no bony crepitance or step-off. There is no obvious deformity noted. Range of motion was limited in all motions of the left knee secondary to pain. There is no laxity appreciated. Pedal pulses are equal bilaterally. Sensation was intact to light touch bilaterally in the lower extremities. Strength is 5/5 bilateral lower extremities. Psych mental status grossly normal MDM MDM MDM Narrative Medical decision making narrative: X-rays of the left knee were obtained. There are 4 views. On my interpretation, there is no acute fracture. There is no dislocation. There is no soft tissue swelling. Radiologist also interpreted the x-rays and agrees. Patient was advised of her findings. Patient was instructed to ice and elevate the left knee. Patient was instructed to take [id number] Tylenol or ibuprofen as needed for pain. I do not feel patient needs prescription analgesics at this time. Patient was instructed to follow-up with her primary care physician in 5 to 7 days. Patient understood and was agreeable with the plan. All questions were answered. Radiography Diagnostic Testing: Clinical Impression(s) from Imaging Studies Knee X-Ray 10/06/22 16:05 IMPRESSION: No fracture or dislocation. Electronically Signed: Vishal Dickson DO at 16:18 EST Reading Location ID and State: [address] [place] [address] Tel [phone], Service support , Discharge Plan Triage Chief Complaint: Lower Extremity Injury ED Provider: Humza Barth Dx/Rx/DC Orders Clinical Impression: Contusion of left knee, initial encounter Instructions: ED Contusion, Lower Extremity Prescriptions: No Action ferrous sulfate 325 MG tablet 325 mg PO DAILY ibuprofen 600 MG tablet 600 mg PO Q6H PRN PRN (Reason: Mild Pain (-11/30)) Qty: 30 0RF cephalexin 500 MG capsule 500 mg PO 4X/DAY Qty: 40 0RF Primary Care Provider: Franck Corona Referrals: Franck Corona MD [Primary Care Provider] - 5-7 Days Disposition Disposition: Home, Self Care
--- NOTE | 2022-10-06 16:05 | RAD_ITS ---
STUDY: X-RAY - LEFT KNEE REASON FOR EXAM: Female, 27 years old. Injury. Pain. Patient states he ran his knee and 12 metal bedpost couple of days ago. Lateral patellar pain. Difficulty walking. TECHNIQUE: 4 view(s) of the knee. COMPARISON: None. FINDINGS: Normal visualized distal femur. Normal visualized proximal tibia and fibula. Normal proximal tibiofibular articulation. There is no acute fracture, dislocation or destructive osseous pathology. Normal medial femorotibial compartment. Normal lateral femorotibial compartment. Normal patellofemoral articulation. There is no demonstrated joint effusion. The soft tissue structures are unremarkable. RAD/Knee 4 or More Views IMPRESSION: No fracture or dislocation. Electronically Signed: Vishal Dickson DO at 16:18 EST ,
== END 2022-10-06 16:45 | disposition home or self-care (01) ==
PROVIDERS: Emergency Provider Emergency Medicine; PCP Family Medicine; Visit Provider Emergency Medicine
DX: S80.02XA Contusion of left knee, initial encounter (principal); W22.09XA Striking against other stationary object, initial encounter
CPT/HCPCS: 73564; 99282